=== PATIENT | male | born 1950 | race Caucasian/White ===

== ENCOUNTER 2016-10-17 08:47 | Observation (INO) | payer MEDICARE ==
[2016-10-17] VITALS (11 sets, daily range): BP systolic 141–166; BP diastolic 64–90
[~2016-10-17] VITALS: Ht 175.3 cm; Wt 117.9 kg
[~2016-10-17 08:47] MED LIST: AMLO5TAB2 PO; ASPI325T11 PO; ASPI325T4 PO; ASPI81TA9 PO; ATEN100T PO; ATEN50TA PO; ATOR40TA59 PO; CLOP75TA PO; COLC0.6T34 PO; FURO40TA4 PO; FURO80TA3 PO; NAPR500T3 PO; OMEP20CA9 PO; PANT40TA3 PO; POTA20TA4 PO; TRIA0.25 PO
[2016-10-17] MEDS ORDERED: ALLO100T PO (09:02)
[2016-10-17] MEDS ORDERED: LOSA50TA6 PO (09:02)
[2016-10-17 09:55] LABS: HEMATOCRIT 30.2 % (39.0-53.0); HEMOGLOBIN 9.9 g/dL (13.0-17.5); RED BLOOD COUNT 3.47 x10^6/uL (4.30-5.70); RED CELL DISTRIBUTION WIDTH 15.7 % (11.5-14.5); WHITE BLOOD COUNT 7.6 x10^3/uL (4.0-11.0)
[2016-10-17 10:06] LABS: CALCIUM 8.9 mg/dL (8.5-10.1); CREATININE 2.7 mg/dL (0.7-1.3); GFR 23.7
[2016-10-17 10:10] LABS: INR 1.2 (0.8-1.1)
[2016-10-17] MEDS ORDERED: CLOP75TA PO (10:25)
[2016-10-17] MEDS ORDERED: IODIXANOL 320 MG/ML 100 ML VIAL. ONE (10:37)
[2016-10-17] MEDS ORDERED: LIDOCAINE 2% 20 ML VIAL. ONE (10:37)
[2016-10-17] MEDS ORDERED: FENTANYL PF 250 MCG/5 ML VIAL. ONE (10:54)
[2016-10-17] MEDS ORDERED: MIDAZOLAM HCL/PF 5 MG/5 ML VIAL ONE (10:54)
--- NOTE | 2016-10-17 10:59 | PDOC ---
MODERATE SEDATION ASSESSMENT RISKS/ALTERNATIVES Risks/Alternatives Risks and alternatives of this type of sedation and procedure discussed with: RISK/ALTERNATIVES: Patient H & P ON CHART H & P H & P on chart and reviewed for co-morbid conditions and appropriate labs. H&P ON CHART: Yes STATUS PREG STATUS ASSESSED: N/A MEDS/ALLERGIES REVIEWED Meds/Allergies Reviewed Medications and Allergies including time and route of recently administered narcotics and sedatives. MEDS/ALLERGIES REVIEWED: Yes ASA RATING ASA RATING: II AIRWAY ASSESSMENT Airway Assessment Airway patency, oral function limitations, presence of caps, crowns, dentures, partials, and ability to extend neck assessed. AIRWAY ASSESSMENT: Yes MALLAMPATI SCORE MALLAMPATI SCORE: II PRE-SEDATION ASSESSMENT PRE-SEDATION ASSESSMENT: Yes LUCERO MUSTAFA MD Oct 17, 2016 10:59
[2016-10-17] MEDS ORDERED: NITROGLYCERIN 4 MG/20 ML SYRINGE for CATH LAB. ONE ×2 (11:30→11:36)
[2016-10-17] MEDS ORDERED: DILTIAZEM IV PUSH 25 MG/5 ML VIAL. ONE (11:36)
[2016-10-17] MEDS ORDERED: HEPARIN for IV BOLUS 10,000 UNIT/10 ML VIAL. ONE (11:37)
[2016-10-17] MEDS ORDERED: FENTANYL PF 250 MCG/5 ML VIAL. IV ONE (11:45)
[2016-10-17] MEDS ORDERED: IODIXANOL 320 MG/ML 100 ML VIAL. IART ONE (11:45)
[2016-10-17] MEDS ORDERED: LIDOCAINE 2% 20 ML VIAL. IJ ONE (11:45)
[2016-10-17] MEDS ORDERED: MIDAZOLAM HCL/PF 5 MG/5 ML VIAL IV ONE (11:45)
[2016-10-17] MEDS ORDERED: DIPHENHYDRAMINE 50 MG/ML VIAL ONE (12:10)
[2016-10-17] MEDS ORDERED: DILTIAZEM IV PUSH 10 MG, NITROGLYCERIN 4MG SYRINGE 4 MG, HEPARIN S0DIUM 10,000 UNIT, VI... INT CAT ONE ×5 (12:30)
[2016-10-17] MEDS ORDERED: NITROGLYCERIN 200 MCG/2 ML SYRINGE FOR CATH/VASC LAB. IART ONE (12:30)
[2016-10-17] MEDS ORDERED: DIPHENHYDRAMINE 50 MG/ML VIAL IVP ONE (13:00)
[2016-10-17] MEDS ORDERED: HEPARIN for IV BOLUS 10,000 UNIT/10 ML VIAL. IART ONE (13:00)
[2016-10-17] MEDS: IV RINGERS,LACTATED 1000ML 1,000 ML IV SCH (14:01)
[2016-10-17] MEDS ORDERED: FENTANYL PF 100 MCG/2 ML VIAL. IV ONE (14:15)
[2016-10-17] MEDS ORDERED: ACETAMINOPHEN 325 MG TABLET. PO PRN (14:15)
[2016-10-17] MEDS ORDERED: MIDAZOLAM HCL 2 MG/2 ML VIAL. IV ONE (14:15)
--- NOTE | 2016-10-17 15:07 | CARD ---
APPROVED REPORT Patient StatusOUT-PATIENT Stringed Instrument Repairer: Karyn White RT (R) Procedure(s) performed: 1. Aortogram with bilateral lower extremity runoff 2. Successful orbital atherectomy, drug coated balloon angioplasty and stent placement to the left s uperficial femoral artery INDICATION FOR PROCEDURE The indication(s) include : Peripheral vascular disease with claudication. PROCEDURE NARRATIVE After explaining the risks, benefits and alternative options, informed consent was obtained from josh ent. Patient was brought to the cardiac Merchandise Handler and his right groin was prepped and draped in the us ua fashion. 20 mL of 2% lidocaine was infiltrated into the skin and subcutaneous tissues for local a nesthesia. Arterial access was obtained in the right common femoral artery and a 5 Palauan sheath was inserted. 5 [place]au[place] pigtail catheter was used to perform aortogram with bilateral lower extremity runo ff. Following findings were noted. FINDINGS 1. No significant stenosis involving the distal descending aorta, bilateral common and external troy c arteries. 2. No significant stenosis involving left common femoral artery. The right common femoral artery kari eared to show 50-60% stenosis. 3. The right superficial femoral artery showed 20-30% stenosis in the midsegment and patent previous ly placed stent in the distal segment. The left superficial femoral artery showed 80% stenosis in the proximal segment, along 90-95% stenosis involving the mid and distal segments. 4. Bilateral popliteal arteries did not show any significant stenosis. 5. The right anterior and posterior tibial arteries appear to be patent without any significant sten osis in the proximal and mid segments with poor visualization of the distal segments. The right peron eal artery showed 90% ostial stenosis that was described in prior angiogram. 6. The left anterior tibial artery showed 100% chronic total occlusion proximally. The left posterio r tibial and peroneal arteries did not show any significant stenosis. INTERVENTION The sheath in the right groin was exchanged to a 45 cm 7 Palauan destination sheath that was advanced over the aortic baron with the help of a cross over catheter and the tip was positioned the left com mon femoral artery. The stenoses in the proximal, mid and distal segments of the left superficial fem oral artery recrossed with a 0.035 inch Glidewire advantage which was exchanged over a 4 Palauan angle d glide catheter to a 0.014 inch viper guidewire. Multiple atherectomy passes were then performed wit hin these lesions using 2.0 SCI stealth operative atherectomy catheter. Subsequently, the proximal se gment stenosis was dilated with a 6.0 x 120 mm Inpact drug-coated balloon. The same balloon was used to predilate the mid and distal segment lesions following which these were treated with a 6.0 x 1 50 mm [place] Supera self-expanding stent. Follow-up angiography showed small area of dissection in the p roximal segment that was successfully treated with a 6.0 x 80 mm Smart stent that was postdilated wit h the 6.0 balloon. Final angiography showed resolution of the stenosis to 0% with good distal flow. P atient tolerated the procedure well. Due to the possible presence of lesion at the site of insertion of the sheath in the right groin, a decision was made not to use a closure device. The sheath will be removed on the floor once ACT comes down below 180. Patient thought of the procedure well. There wer e no immediate complications. Conclusion Successful operative atherectomy/drug coated balloon MENTAL HEALTH TECHNICIAN/stent placement to the left superficial femo ral artery. The previous placed stent in the right superficial femoral arteries patent. Recommendations Consider ultrasound of the right groin at a later date for the evaluate the right common femoral myrna ry stenosis. Risk factor modification and regular exercise regimen.
[2016-10-17] MEDS ORDERED: CYCLOBENZAPRINE 10 MG TABLET. PO PRN (15:30)
[2016-10-17] MEDS ORDERED: DIAZEPAM 5 MG TABLET PO ONE (15:45)
[2016-10-17] MEDS ORDERED: DIPHENHYDRAMINE 50 MG/ML VIAL IVP PRN (15:45)
[2016-10-17] MEDS ORDERED: PROTAMINE 50 MG/5 ML VIAL. IV ONE (16:15)
[2016-10-17] MEDS: FENTANYL PF 100 MCG/2 ML VIAL. IV PRN ×2 (17:30→20:12)
[2016-10-17] MEDS: ACETYLCYSTEINE 20% ORAL SOLN 600 MG/3 ML SYRINGE. PO SCH (20:10)
[2016-10-17] MEDS ORDERED: POTASSIUM CHLORIDE 20 MEQ TABLET.ER. PO SCH (21:00)
[2016-10-17] MEDS ORDERED: ATORVASTATIN CALCIUM 40 MG TABLET. PO SCH (21:00)
[2016-10-18] MEDS: IV RINGERS,LACTATED 1000ML 1,000 ML IV SCH ×2 (00:01→10:01)
[2016-10-18 02:52] VITALS: BP 166/86
[2016-10-18 05:49] LABS: CALCIUM 9.1 mg/dL (8.5-10.1); CREATININE 2.4 mg/dL (0.7-1.3); GFR 27.1; POTASSIUM 4.7 mmol/L (3.5-5.1)
[2016-10-18 06:28] VITALS: BP 165/79
[2016-10-18] MEDS ORDERED: PANTOPRAZOLE 40 MG TABLET. PO SCH (07:30)
[2016-10-18] MEDS ORDERED: ASPIRIN ENTERIC COATED 325 MG TABLET.DR. PO SCH (08:00)
[2016-10-18] MEDS ORDERED: CLOPIDOGREL BISULFATE 75 MG TABLET PO SCH (09:00)
[2016-10-18] MEDS ORDERED: FUROSEMIDE 80 MG TABLET PO SCH (09:00)
[2016-10-18] MEDS ORDERED: AMLODIPINE BESYLATE 5 MG TABLET PO SCH (09:00)
[2016-10-18] MEDS ORDERED: ATENOLOL 50 MG TABLET PO SCH (09:00)
[2016-10-18] MEDS ORDERED: POTASSIUM CHLORIDE 20 MEQ TABLET.ER. PO SCH (09:00)
[2016-10-18] MEDS ORDERED: LOSARTAN POTASSIUM 50 MG TABLET. PO SCH (09:00)
[2016-10-18] MEDS ORDERED: ALLOPURINOL 100 MG TABLET. PO SCH (09:00)
[2016-10-18] MEDS: ACETYLCYSTEINE 20% ORAL SOLN 600 MG/3 ML SYRINGE. PO SCH (09:22)
[2016-10-18 11:04] VITALS: BP 107/83
[2016-10-18] MEDS ORDERED: OXYCODONE/APAP 5/325 TABLET. PO PRN (12:30)
--- NOTE | 2016-10-18 14:44 | PDOC3 ---
Discharge Summary Visit Information Date of Admission: Oct 17, 2016 Date of Discharge: Oct 18, 2016 Admitting Diagnosis: PVD Final Diagnosis Problems Medical Problems: (1) PVD (peripheral vascular disease) with claudication Status: Acute Brief Hospital Course Allergies Allergies Coded Allergies Type Severity Reaction Last Updated Verified Penicillins Allergy Intermediate Rash 10/18/16 Yes Vital Signs Vital Signs Date Time Temp Pulse Resp B/P Pulse Ox O2 Delivery O2 Flow Rate FiO2 10/18/16 12:42 Room Air 10/18/16 11:04 98.7 64 20 107/83 96 98.7 10/18/16 06:28 2.0 Lab Results Laboratory Tests Test 10/17/16 09:35 10/17/16 15:37 10/17/16 15:45 10/18/16 04:51 White Blood Count 7.6x10^3/uL (4.0-11.0) Red Blood Count 3.47x10^6/uL (4.30-5.70) Hemoglobin 9.9g/dL (13.0-17.5) Hematocrit 30.2% (39.0-53.0) Mean Corpuscular Volume 87fL (79-100) Mean Corpuscular Hemoglobin 28pg (25-35) Mean Corpuscular Hemoglobin Concent 33g/dL (31-37) Red Cell Distribution Width 15.7% (11.5-14.5) Platelet Count 218x10^3/uL (140-400) Prothrombin Time 14.0SEC (11.7-14.0) Prothromb Time International Ratio 1.2 (0.8-1.1) Sodium Level 144mmol/L (136-145) 142mmol/L (136-145) Potassium Level 4.0mmol/L (3.5-5.1) 4.7mmol/L (3.5-5.1) Chloride Level 109mmol/L (98-107) 107mmol/L (98-107) Carbon Dioxide Level 25mmol/L (21-32) 24mmol/L (21-32) Anion Gap 10 (6-14) 11 (6-14) Blood Urea Nitrogen 53mg/dL (8-26) 45mg/dL (8-26) Creatinine 2.7mg/dL (0.7-1.3) 2.4mg/dL (0.7-1.3) Estimated GFR (Cockcroft-Gault) 23.7 27.1 Glucose Level 124mg/dL (70-99) 102mg/dL (70-99) Calcium Level 8.9mg/dL (8.5-10.1) 9.1mg/dL (8.5-10.1) Activated Clotting Time 219sec (92-181) 219sec (92-181) Laboratory Tests Test 10/17/16 15:37 10/17/16 15:45 10/18/16 04:51 Activated Clotting Time 219sec (92-181) 219sec (92-181) Sodium Level 142mmol/L (136-145) Potassium Level 4.7mmol/L (3.5-5.1) Chloride Level 107mmol/L (98-107) Carbon Dioxide Level 24mmol/L (21-32) Anion Gap 11 (6-14) Blood Urea Nitrogen 45mg/dL (8-26) Creatinine 2.4mg/dL (0.7-1.3) Estimated GFR (Cockcroft-Gault) 27.1 Glucose Level 102mg/dL (70-99) Calcium Level 9.1mg/dL (8.5-10.1) Brief Hospital Course Mr. Merritt is a 66 old male, with a history of PAD s/o orbital arthrectomy/SOLID TIRE FINISHER to left SFA/PT and right SFA/AT/PT, who presented to the office with complaints of recurrence of pain in bilateral thighs upon exertion and relieved with rest. Patient presented electively for aortogram with bilateral lower extremity runoff. Underwent successful orbital atherectomy/drug coated balloon SOLID TIRE FINISHER/stent placement to the left superficial femoral artery. Previously placed stent in the right superficial femoral artery patent. Monitored overnight without complications. Right groin arteriotomy site C/D/I with neurovascular status intact. Ambulatory without difficulty. VSS. Lungs CTA. Cr stable at 2.4 Continue DAPT with ASA and Plavix. Office f/u in 4 weeks. Discharge Information Follow Up: Weeks (4) Scheduled Allopurinol (Allopurinol) 1 TAB PO DAILY (Reported) Amlodipine Besylate (Amlodipine Besylate) 5 MG PO DAILY Aspirin (Aspirin Ec) 325 MG PO DAILYWBKFT Atenolol (Atenolol) 100 MG PO DAILY Atorvastatin Calcium (Atorvastatin Calcium) 40 MG PO HS Clopidogrel Bisulfate (Clopidogrel) 1 TAB PO DAILY (Reported) Furosemide (Furosemide) 80 MG PO BID92 Losartan Potassium (Losartan Potassium) 50 MG PO DAILY (Reported) Pantoprazole Sodium (Protonix) 1 TAB PO DAILY Potassium Chloride (Klor-Con M20) 1 TAB PO BID (Reported) Patient Instructions Patient Instructions GENERAL INSTRUCTIONS: 1. Your dressing should be removed prior to leaving the hospital. 2. It is OK to shower the day after your procedure. 3. If you received stents, be sure to carry your stent information card with you in your wallet/purse at all times. 4. Call the office immediately at [phone] if you notice any fever or if there is redness, worsening tenderness/pain, increased bruising, or drainage from the puncture site. 5. Should you have bleeding from the site, lie down immediately & put pressure on the site. The pressure should be hard enough to stop the bleeding. Have the nearest person call 911. DO NOT try to drive to the ER with active bleeding. 6. If you notice a change in color, coolness to touch, or loss of feeling in the affected extremity, come to the emergency room. Please have someone drive you or call 911 if no one is available. DO NOT drive yourself. 7. If you normally take glucophage (metformin), please do not take this medicine for 48 hours following your procedure. 8. DO NOT STOP TAKING YOUR PLAVIX OR ASPIRIN UNLESS IT IS CLEARED BY A TEXTILE STYLIST OF YOUR FOREPART ROUNDER AT OUR OFFICE. 9. QUIT SMOKING: the [place] [employer], [place] [employer], & [place] [employer] have cessation resources available on their websites 10. Please have someone available to drive you home from the hospital as you may be limited by sedation medications given during the procedure. Femoral (Groin) access: 1. Do no lifting, pushing, pulling, bending, stooping, or recurrent stair climbing for 3 days following your procedure. 2. Once past the first 3 days, do not do any HEAVY exertion or lifting for one week following the procedure. No gym workouts, running, lifting greater than a gallon of milk, etc 3. Do not submerge in bath or pool for one week. OK to drive 3 days following your procedure, but if going long distance, do not go alone & take hourly breaks to get out of car and walk around. Radial Artery (Wrist) access: 1. No pushing, pulling, lifting, typing, or anything that requires repetitive use/movement of the affected wrist for 3 days following your procedure. 2. OK to drive the day following your procedure. (This is because of effects of sedating medications.) Call the office at [phone] for any questions or concerns. LAI KING APRN Oct 18, 2016 14:44
== END 2016-10-18 13:45 | disposition home or self-care (01) ==
LOC: CCL 08:47 → INTOOBSV 14:50 → CVICU 14:50
PROVIDERS: ADMIT Internal Medicine Cardiovascular Disease; ATTEND Internal Medicine Cardiovascular Disease
DX: I73.9 Peripheral vascular disease, unspecified (principal)
CPT/HCPCS: 36415; 37227; 75630; 80048; 85027; 85347; 85610; 96374; 96375; 96376; C1769; C1877; C1892; C2623; G0378; G0379; J1200; J2250; J3010; J3490; J7030